=== PATIENT | female | born 1935 | race Caucasian/White ===

== ENCOUNTER 2019-01-18 15:49 | Outpatient (CLI) | payer OTHER ==
[2014-01-09 18:44] VITALS: BMI 22.8
--- NOTE | 2019-01-18 16:31 | DI ---
EXAM: Mandible four views HISTORY: Pain COMPARISON: None TECHNIQUE: Five views of the mandible were performed FINDINGS: No fracture or dislocation identified. No focal soft tissue abnormality. IMPRESSION: No fracture or dislocation identified.
== END 2019-01-18 15:50 | disposition home or self-care (01) ==
LOC: RAD 15:49
PROVIDERS: ATTEND Internal Medicine Hematology & Oncology
DX: C50.911 Malignant neoplasm of unspecified site of right female breast (principal)